=== PATIENT | male | born 1950 | race Caucasian/White ===

== ENCOUNTER → 2017-01-09 | Outpatient (CLI) | payer OTHER ==
[~2017-01-09] MED LIST: OPTIRAY 320 IV PRN
--- NOTE | 2017-01-09 16:35 | DIAGNOSTIC IMAGING REPORT ---
ABD/PELVIS IV AND ORAL CONT CLINICAL HISTORY: 66 years-old Male presenting with ABDOMINAL PAIN ASCITIES, HERNIA. TECHNIQUE: Multidetector CT of the abdomen and pelvis was performed after the administration of oral and intravenous contrast. IV contrast: 120 mL of Optiray 320. A dose lowering technique was used consistent with the principles of ALARA (as low as reasonably achievable). COMPARISON: None. CT DOSE (mGy.cm): The estimated cumulative dose is 1144.76 mGy.cm. FINDINGS: [employer] Speech Language [employer]ologist topogram: Unremarkable. Lung bases: Bandlike opacities at the lung bases likely atelectasis. Normal heart size. Aortic valve and minimal coronary artery calcification. Liver: Normal morphology. No liver lesion. Patent hepatic vasculature. Biliary: No intrahepatic or extrahepatic biliary ductal dilatation. Normal gallbladder. Pancreas: Moderate parenchymal atrophy. Spleen: Normal. Adrenal glands: Normal. Kidneys and ureters: Multiple well-defined hypodensities in the kidneys, likely simple cysts. Nonobstructing punctate calculus at the lower pole right kidney (series 3 image 220). Multiple nonobstructing left renal calculi, the largest measuring 3 mm in the interpolar region. No hydronephrosis. Normal ureters. Bladder: Incompletely evaluated secondary to underdistention. Pelvic organs: Prostate normal. Possible right seminal vesicle cyst superiorly. Bowel: Normal appendix. No bowel obstruction. Peritoneal cavity: No free fluid or intraperitoneal gas. Vasculature: Atherosclerosis of the normal caliber abdominal aorta. IVC patent. Lymph nodes: No enlarged lymph nodes in the abdomen or pelvis. Abdominal wall: Small fat-containing umbilical hernia. No other hernia noted. Musculoskeletal: Degenerative changes of the spine. IMPRESSION: 1. No acute intra-abdominal pathology. 2. Bibasilar atelectasis. 3. Multiple bilateral renal cysts. 4. Bilateral nephrolithiasis, the largest measuring 3 mm on the left. Electronically signed by: Zachary Wilburn M.D. 01/09/2017 4:34 PM Dictated Date/Time: 01/09/2017 4:27 PM
== END | disposition home or self-care (01) ==
LOC: C.CTS 14:08
PROVIDERS: ATTEND Physician Assistant
DX: K40.90 Unilateral inguinal hernia, without obstruction or gangrene, not specified as recurrent (principal); N43.3 Hydrocele, unspecified; J98.11 Atelectasis; N28.1 Cyst of kidney, acquired; N20.0 Calculus of kidney

== ENCOUNTER → 2017-02-13 | Outpatient (CLI) | payer OTHER ==
--- NOTE | 2017-02-13 19:17 | DIAGNOSTIC IMAGING REPORT ---
R UPPER EXT JOINT WITHOUT CLINICAL HISTORY: RT SHOULDER PAIN,M75.121 pain TECHNIQUE: Multiaxial MRI acquisition COMPARISON STUDY: None FINDINGS: Signal characteristics the osseous structures are in general unremarkable. Considerable hypertrophic change of the acromioclavicular joint creating significant impingement upon the musculotendinous junction of the supraspinatus tendon. Supraspinatus demonstrates a general tendinopathy with a probable anterior full-thickness tear. No significant musculotendinous retraction. The infraspinatus and subscapularis tendons are considered unremarkable. Biceps tendon is intact. Moderate deterioration degenerative basis of the glenoid labrum. An acute superimposed acute labral tear is not felt to be identified. IMPRESSION: 1. Moderate degenerative change of the structures of the glenohumeral joint with considerable hypertrophic change of the acromioclavicular joint. 2. Considerable tendinopathy of the supraspinatus possibly on an impingement basis with a probable focal full-thickness tear of the anterior or leading-edge. 3. No significant musculotendinous retraction. 4. Moderate degenerative substance change of the glenoid labrum. 5. Small joint effusion. The above report was generated using voice recognition software. It may contain grammatical, syntax or spelling errors. Electronically signed by: Godfrey Ness M.D. 02/13/2017 7:16 PM Dictated Date/Time: 02/13/2017 7:11 PM
== END | disposition home or self-care (01) ==
LOC: C.MRI 18:07
PROVIDERS: ATTEND Physician Assistant
DX: M75.121 Complete rotator cuff tear or rupture of right shoulder, not specified as traumatic (principal); M19.011 Primary osteoarthritis, right shoulder; M25.411 Effusion, right shoulder